=== PATIENT | female | born 1985 | race Caucasian/White ===

== ENCOUNTER 2017-05-17 20:07 | Emergency (ER) | payer SELFPAY ==
[2017-05-17 20:29] VITALS: BP 135/82
[2017-05-17] MEDS ORDERED: MOTRIN PO ONE (21:29)
[2017-05-18] MEDS ORDERED: BICILLIN L-A IM ONE (00:11)
--- NOTE | 2017-05-18 00:17 | Emergency Department Report ---
ED ENT HPI - General Chief complaint: Sore Throat Stated complaint: SOB Time Seen by Provider: 05/17/17 23:58 Source: patient Mode of arrival: Ambulatory Limitations: No Limitations - History of Present Illness MD complaint: sore throat -: Gradual Location: throat Severity: moderate Severity scale (0 -10): 3 Quality: aching Consistency: constant Improves with: none Worsens with: swallowing Associated Symptoms: pain with swallowing. denies: discharge from ear - Related Data Previous Rx's Medication Instructions Recorded Last Taken Type Ibuprofen [Motrin] 800 mg PO Q8HR PRN #30 tablet 05/18/17 Unknown Rx Allergies Allergy/AdvReac Type Severity Reaction Status Date / Time No Known Allergies Allergy Verified 11/30/13 10:15 ED Dental HPI - General Chief complaint: Sore Throat Time Seen by Provider: 05/17/17 23:50 Source: patient Mode of arrival: Ambulatory Limitations: No Limitations - History of Present Illness Initial comments: 32 YO FEMALE WITH SORE THROAT FOR ONE DAY. NO FEVER ,NO CHILLS NO URI SYMPTOMS Severity: moderate Quality: aching Consistency: constant Improves with: none Worsens with: swallowing Dental Associated Symptons: No: Headache, Earache, Gum Swelling, Fever - Related Data Previous Rx's Medication Instructions Recorded Last Taken Type Ibuprofen [Motrin] 800 mg PO Q8HR PRN #30 tablet 05/18/17 Unknown Rx Allergies Allergy/AdvReac Type Severity Reaction Status Date / Time No Known Allergies Allergy Verified 11/30/13 10:15 ED Review of Systems ROS: Stated complaint: SOB Other details as noted in HPI Constitutional: denies: chills, fever Eyes: denies: eye pain, eye discharge, vision change ENT: denies: ear pain, throat pain, congestion Respiratory: denies: cough, shortness of breath, wheezing Cardiovascular: denies: chest pain, palpitations Endocrine: no symptoms reported Gastrointestinal: denies: abdominal pain, nausea, diarrhea Genitourinary: denies: urgency, dysuria, discharge Musculoskeletal: denies: back pain, joint swelling, arthralgia Skin: denies: rash, lesions Neurological: denies: headache, weakness, paresthesias Psychiatric: denies: anxiety, depression Hematological/Lymphatic: denies: easy bleeding, easy bruising ED Past Medical Hx - Past Medical History Previous Medical History?: No - Surgical History Past Surgical History?: No - Social History Smoking Status: Never Smoker Substance Use Type: None - Medications Home Medications: Home Medications Medication Instructions Recorded Confirmed Last Taken Type Ibuprofen [Motrin] 800 mg PO Q8HR PRN #30 tablet 05/18/17 Unknown Rx ED Physical Exam - General Limitations: No Limitations General appearance: alert, in no apparent distress - Head Head exam: Present: atraumatic, normocephalic - Eye Eye exam: Present: normal appearance - ENT ENT exam: Present: mucous membranes moist - Expanded ENT Exam Expanded Throat exam: Positive: tonsillar erythema. Negative: tonsillar exudate, R peritonsillar mass, L peritonsillar mass - Neck Neck exam: Present: normal inspection, lymphadenopathy (RIGHT SIDED LYMPHADENOPATHY) - Respiratory Respiratory exam: Present: normal lung sounds bilaterally. Absent: respiratory distress - Cardiovascular Cardiovascular Exam: Present: regular rate, normal rhythm. Absent: systolic murmur, diastolic murmur, rubs, gallop - GI/Abdominal GI/Abdominal exam: Present: soft, normal bowel sounds - Extremities Exam Extremities exam: Present: normal inspection - Back Exam Back exam: Present: normal inspection - Neurological Exam Neurological exam: Present: alert, oriented X3 - Psychiatric Psychiatric exam: Present: normal affect, normal mood - Skin Skin exam: Present: warm, dry, intact, normal color. Absent: rash ED Course Vital Signs 05/17/17 20:27 Temperature 98.1 F Pulse Rate 71 Respiratory 18 Rate Blood Pressure 135/82 O2 Sat by Pulse 100 Oximetry Critical care attestation.: If time is entered above; I have spent that time in minutes in the direct care of this critically ill patient, excluding procedure time. ED Disposition Clinical Impression: Pharyngitis Disposition: DC-01 TO HOME OR SELFCARE Is pt being admited?: No Does the pt Need Aspirin: No Condition: Stable Instructions: Pharyngitis (ED), Strep Throat (ED) Prescriptions: Ibuprofen [Motrin] 800 mg PO Q8HR PRN #30 tablet PRN Reason: Pain Referrals: PRIMARY CARE,MD [Primary Care Provider] - 3-5 Days [facility] [Outside] - 3-5 Days
== END 2017-05-18 00:48 | disposition home or self-care (01) ==
LOC: ED 20:07
DX: J02.9 Acute pharyngitis, unspecified (principal)
CPT/HCPCS: 87116; 87430; 96372; 99282; J0561

== ENCOUNTER 2020-10-09 13:05 | Emergency (ER) | payer SELFPAY ==
[2020-10-09] MEDS ORDERED: ONDANSETRON 4 MG ODT TAB PO ONE (13:33)
[2020-10-09] MEDS ORDERED: FAMOTIDINE 20 MG TAB PO ONE (13:33)
--- NOTE | 2020-10-09 13:33 | Emergency Department Report ---
ED Chest Pain HPI - General Stated Complaint: CHEST PAINS Time Seen by Provider: 10/09/20 13:31 Source: patient Mode of arrival: Ambulatory Limitations: No Limitations - History of Present Illness Initial Comments: 35-year-old female with no significant past medical history presents to the ER today with complaints of substernal chest pain. Patient states that symptoms started last night. Patient describes it as a tightness. She states that it seems to be worse when she is moving around or when she is relaxed and calm it improves. She reports nausea but no vomiting. She states that she gets diaphoretic and her hands and her feet. She denies any associated shortness of breath, cough, fever or chills. She states that she is also been having right upper quadrant intermittent pain since Thursday. She describes as a pressure pain. She is unable to describe any modifying factors for the right upper quadrant abdominal pain. She states that she has not been having very much bowel movements and she has not had much of an appetite. She does admit that she has been having intermittent flareups of anxiety and depression since her mom last year. He said that the chest pain she was having last night feels similar with the exception that she felt like her heart was fluttering and the pain in her right upper quadrant was new. She denies any prior history of anxiety depression prior to her mom passing away. She denies any other psych disorders. She states that she has not seen a doctor since has been having the symptoms of anxiety or depression. She denies any SI or HI. She denies any hallucinations. She states that she is quit smoking last year. She denies any illicit drug use. MD Complaint: chest pain -: Gradual - Related Data Previous Rx's Medication Instructions Recorded Last Taken Type Ibuprofen [Motrin] 800 mg PO Q8HR PRN #30 tablet 05/18/17 Unknown Rx Famotidine [Pepcid] 20 mg PO BID #60 tablet 10/09/20 Unknown Rx Ondansetron [Zofran Odt] 4 mg PO Q8HR PRN #15 tab.rapdis 10/09/20 Unknown Rx hydrOXYzine HCL [Atarax] 50 mg PO TID PRN #30 tablet 10/09/20 Unknown Rx Allergies Allergy/AdvReac Type Severity Reaction Status Date / Time No Known Allergies Allergy Verified 11/30/13 10:15 Heart Score - HEART Score History: Slightly suspicious EKG: Normal Age: < 45 Risk factors: No known risk factors Troponin: < normal limit HEART Score: 0 ED Review of Systems ROS: Stated complaint: CHEST PAINS Other details as noted in HPI ED Past Medical Hx - Social History Smoking Status: Never Smoker Substance Use Type: None - Medications Home Medications: Home Medications Medication Instructions Recorded Confirmed Last Taken Type Ibuprofen [Motrin] 800 mg PO Q8HR PRN #30 tablet 05/18/17 Unknown Rx Famotidine [Pepcid] 20 mg PO BID #60 tablet 10/09/20 Unknown Rx Ondansetron [Zofran Odt] 4 mg PO Q8HR PRN #15 tab.rapdis 10/09/20 Unknown Rx hydrOXYzine HCL [Atarax] 50 mg PO TID PRN #30 tablet 10/09/20 Unknown Rx ED Course Vital Signs 10/09/20 13:32 Temperature 97.3 F L Pulse Rate 77 Respiratory 18 Rate Blood Pressure 136/58 O2 Sat by Pulse 99 Oximetry STEVEN score - Steven Score Age > 65: (0) No Aspirin use within the Past 7 Days: (0) No 3 or more CAD Risk Factors: (0) No 2 or more Angina events in past 24 hrs: (0) No Known CAD with more than 50% Stenosis: (0) No Elevated Cardiac Markers: (0) No ST Deviation Greater than 0.5mm: (0) No STEVNE Score: 0 ED Medical Decision Making - Lab Data Result diagrams: 10/09/20 13:50 10/09/20 13:50 - EKG Data EKG shows normal: sinus rhythm Rate: normal (66) - EKG Data Interpretation: nonspecific ST-T wave odilia - Radiology Data Radiology results: report reviewed Patient: OXANA JUNG MR#: [id number] : 1985 Acct:[id number] Age/Sex: 35 / F ADM Date: 10/09/20 Loc: ED Attending Dr: Ordering Physician: WANDER CLIFFORD Date of Service: 10/09/20 Procedure(s): XR chest routine 2V Accession Number(s): [id number] cc: WANDER CLIFFORD Fluoro Time In Minutes: CHEST 2 VIEWS INDICATION: Chest Pain. COMPARISON: None FINDINGS: Support devices: None. Heart: Within normal limits. Lungs/pleura: No acute air space or interstitial disease. No pneumothorax. Additional findings: None. IMPRESSION: No acute findings. Signer Name: Zachariah Montalvo Jr, MD Signed: 10/09/2020 3:49 PM Workstation Name: [id number] Transcribed By: TTR Dictated By: ZACHARIAH MONTALVO JR, MD Electronically Authenticated By: ZACHARIAH MONTALVO JR, MD Signed Date/Time: 10/09/201548 DD/ 48 TD/TT: - Medical Decision Making Labs reviewed, and unremarkable including nl trop. EKG shows no acute ischemic changes, STEMI or any significant dysrhythmia. UDS positive for marijuana but otherwise normal. Chest x-ray is normal. Right upper quadrant abdominal ultrasound show gallbladder sludge but otherwise nothing acute. The patient is resting comfortably and, is alert and in no distress. The repeat examination is unremarkable and benign. The history, exam, diagnostic testing and current condition do not suggest that this patient is having acute myocardial infarction, significant arrhythmia, unstable angina, esophageal perforation, pulmonary embolism, aortic dissection, pneumothorax, severe pneumonia, sepsis or other significant pathology that would warrant further testing, continued ED treatment, admission or cardiology or other specialist consultation at this time. Suspect patient symptoms related to stress/anxiety at this time. Discussed lab results, suspected dx and tx plan with patient. The vital signs have been stable. The patient's condition is stable and appropriate for discharge. The patient will pursue further outpatient evaluation with the primary care physician. Critical care attestation.: If time is entered above; I have spent that time in minutes in the direct care of this critically ill patient, excluding procedure time. ED Disposition Clinical Impression: Atypical chest pain, Right upper quadrant abdominal pain, Anxiety as acute reaction to exceptional stress Disposition: DC-01 TO HOME OR SELFCARE Is pt being admited?: No Does the pt Need Aspirin: No Condition: Stable Instructions: Generalized Anxiety Disorder, Adult, Nonspecific Chest Pain, Adult, Managing Anxiety, Adult Additional Instructions: Take the atarax, zofran, and pepcid as prescribed. You can take tylenol as needed for pain. I recommend follow up with PCP listed on your d/c instructions. Return to ED if symptoms changes or worsens in anyway. Prescriptions: hydrOXYzine HCL [Atarax] 50 mg PO TID PRN #30 tablet PRN Reason: Anxiety Famotidine [Pepcid] 20 mg PO BID #60 tablet Ondansetron [Zofran Odt] 4 mg PO Q8HR PRN #15 tab.rapdis PRN Reason: Nausea Referrals: MELINDA MAGANA MD [Staff Physician] - 3-5 Days Forms: Work/School Release Form(ED) Time of Disposition: 16:01
[2020-10-09 13:36] VITALS: BP 136/58
[2020-10-09 14:49] LABS: Basophils # (Auto) 0.1 K/mm3 (0.0-0.1); Basophils % (Auto) 0.8 % (0.0-1.8); Eosinophils # (Auto) 0.1 K/mm3 (0.0-0.4); Eosinophils % (Auto) 1.1 % (0.0-4.3); Hematocrit 40.4 % (30.3-42.9); Hemoglobin 13.7 gm/dl (10.1-14.3); Lymphocytes # (Auto) 1.6 K/mm3 (1.2-5.4); Lymphocytes % (Auto) 21.1 % (13.4-35.0); Mean Corpuscular HGB Conc 34 % (30-34); Mean Corpuscular Volume 81 fl (79-97); Monocytes # (Auto) 0.5 K/mm3 (0.0-0.8); Monocytes % (Auto) 6.8 % (0.0-7.3); Platelet Count 317 K/mm3 (140-440); Red Cell Distribution Width 14.1 % (13.2-15.2)
[2020-10-09 15:17] LABS: Alanine Aminotransferase 11 units/L (7-56); Albumin 4.9 g/dL (3.9-5); BUN/Creatinine Ratio 10; Blood Urea Nitrogen 7 mg/dL (7-17); Calcium 9.5 mg/dL (8.4-10.2); Hemolysis Index 1
--- NOTE | 2020-10-09 15:28 | Ultrasound Report ---
ULTRASOUND ABDOMEN, LIMITED (RIGHT UPPER QUADRANT) INDICATION / CLINICAL INFORMATION: RUQ abd pain. COMPARISON: None available. FINDINGS: PANCREAS: Visualized portion shows no significant abnormality. LIVER: No significant abnormality. GALLBLADDER: Small amount of biliary sludge in the gallbladder neck. No significant gallbladder wall thickening or pericholecystic fluid. Negative sonographic Carrion's sign. BILE DUCTS: No significant abnormality. Common bile duct measures 3 mm. FREE FLUID: None. ADDITIONAL FINDINGS: None. IMPRESSION: 1. Small amount of biliary sludge without evidence of acute cholecystitis. Signer Name: Jarod Barrett MD Signed: 10/09/2020 3:24 PM Workstation Name: [id number]
[2020-10-09 15:33] LABS: Amphetamine Screen,Urine Negative; Benzodiazepines Screen,Urine Negative; Cocaine Screen,Urine Negative; Methadone Screen,Urine Negative; Opiate Screen,Urine Negative
[2020-10-09 15:52] LABS: Cannabinoid Screen,Urine Positive
--- NOTE | 2020-10-09 15:54 | XRay Report ---
CHEST 2 VIEWS INDICATION: Chest Pain. COMPARISON: None FINDINGS: Support devices: None. Heart: Within normal limits. Lungs/pleura: No acute air space or interstitial disease. No pneumothorax. Additional findings: None. IMPRESSION: No acute findings. Signer Name: Zachariah Montalvo Jr, MD Signed: 10/09/2020 3:49 PM Workstation Name: [id number]
[2020-10-09] MEDS ORDERED: FAMOTIDINE 20 MG TAB ONE (16:14)
[2020-10-09] MEDS ORDERED: ONDANSETRON 4 MG ODT TAB ONE (16:15)
== END 2020-10-09 16:40 | disposition home or self-care (01) ==
LOC: ED 13:05
DX: R07.89 Other chest pain (principal); R10.11 Right upper quadrant pain; F41.9 Anxiety disorder, unspecified; F43.9 Reaction to severe stress, unspecified; Z79.1 Long term (current) use of non-steroidal anti-inflammatories (NSAID); Z79.899 Other long term (current) drug therapy
CPT/HCPCS: 36415; 71046; 76705; 80053; 80307; 83690; 84484; 84703; 85025; 93005; Q0162